=== PATIENT | male | born 1975 | race African-American/Black ===

== ENCOUNTER 2024-07-20 08:47 | Emergency (ER) | payer MEDICARE, OTHER ==
[2024-07-20 08:57] VITALS: RESP 18
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
[2024-07-20 10:49] VITALS: BP 136/82; PULSE 80; TEMP 98
== END 2024-07-20 10:50 | disposition home or self-care (01) ==
LOC: EC 08:47
CPT/HCPCS: 70450; 72125; 99284